=== PATIENT | female | born 1990 | race African-American/Black ===

== ENCOUNTER 2025-04-10 00:26 | Emergency (ER) | payer SELFPAY ==
[~2025-04-10] VITALS: Ht 177.8 cm; Wt 122.0 kg
[2025-04-10 00:35] VITALS: TEMP 37.2; O2SAT 100
[2025-04-10] MEDS: ACETAMINOPHEN 325MG TABLET PO ONE (01:10)
[2025-04-10 01:31] LABS: EOSINOPHILS % 2.3 % (0.0-5.0); HEMATOCRIT. 39.6 % (36.0-48.0); HEMOGLOBIN. 13.6 g/dL (12.0-16.0); LYMPHOCYTES % 40.2 % (20.0-50.0); MEAN CORPUSCULAR HEMOGLOBIN 31.8 pg (28.0-32.0); MEAN CORPUSCULAR HGB CONC 34.3 g/dL (31.0-37.0); MEAN CORPUSCULAR VOLUME 92.6 fL (81.0-99.0); MEAN PLATELET VOLUME 8.1 fl (7.4-10.4); MONOCYTES % 6.1 % (2.0-8.0); NEUTROPHILS % 50.4 % (40.0-76.0); PLATELET 279 x1000/uL (130-400); RED BLOOD CELL COUNT 4.28 mill/uL (4.2-5.4); RED CELL DISTRIBUTION WIDTH 13.1 % (11.6-14.6); WHITE BLOOD COUNT 7.1 x1000/uL (4.5-11.0)
[2025-04-10 01:40] LABS: HCG SCREEN NEGATIVE
[2025-04-10 01:47] LABS: CHLORIDE 104 mEq/L (98-107); POTASSIUM 3.1 mEq/L (3.5-5.1); SODIUM 142 mEq/L (136-145)
[2025-04-10 01:48] LABS: CARBON DIOXIDE 28 mEq/L (21-32)
[2025-04-10] MEDS: MORPHINE SULFATE 4 MG/ML INJ (FOR IV/IM USE) IV ONE (01:51)
[2025-04-10 01:53] LABS: CREATININE 0.8 mg/dL (0.6-1.0); GLUCOSE 96 mg/dL (70-105)
[2025-04-10 01:54] LABS: UREA NITROGEN BLOOD 10 mg/dL (9-23)
[2025-04-10] MEDS: HYDROCODONE/ACETAMINOPHEN 5/325MG TABLET PO NR (03:41)
[2025-04-10] MEDS ORDERED: NAPR-1074 MT (04:41)
[2025-04-10 05:16] VITALS: O2SAT 99
[2025-04-10 05:20] VITALS: BP 140/82; PULSE 93; RESP 25
[2025-04-10] MEDS: KETOROLAC 30MG/ML VIAL IM NR (05:20)
== END 2025-04-10 05:30 | disposition home or self-care (01) ==
LOC: ER 00:26
DX: M79.661 Pain in right lower leg (principal); M25.571 Pain in right ankle and joints of right foot; F12.90 Cannabis use, unspecified, uncomplicated; Z79.899 Other long term (current) drug therapy
CPT/HCPCS: 80048; 84703; 85025; 36415; 73502; 73562; 73590; 73610; 73620; 96372; 96374; 99285; J1885; J2270; Z7610; L1830